=== PATIENT | male | born 1975 | race Caucasian/White ===

== ENCOUNTER 2016-06-17 04:55 | Emergency (ER) | payer MEDICAID ==
[~2016-06-17] VITALS: Ht 175.3 cm; Wt 75.0 kg
[~2016-06-17 04:55] MED LIST: CEPH-443 PO; IBUP-1542 PO
[2016-06-17 04:57] VITALS: Ht 175.3 cm; Wt 75.0 kg
[2016-06-17 05:25] VITALS: BP 137/81; RESP 20; TEMP 98.1
[2016-06-17] MEDS ORDERED: CETI10CA PO (05:30)
[2016-06-17] MEDS ORDERED: POLY10DR19 BOTH EYES (05:30)
[2016-06-17] MEDS ORDERED: IBUP-1542 PO (05:30)
[2016-06-17] MEDS ORDERED: GUAI120S26 PO (05:30)
--- NOTE | 2016-06-17 05:51 | ERD ---
ER Documentation Chief Complaint Date/Time DATE: 06/17/16 TIME: 05:41 Chief Complaint bilateral eye redness with discharge x 1 week HPI 31-year-old male presents to emergency department for complaints of bilateral eye redness and discharge for 1 week. Patient is complaining of itching. Patient denies any eye pain. Patient denies any problems with vision. Patient family members are sick with the same symptoms. Patient has been having dry cough, does not cough up any phlegm or blood. Patient does not have shortness of breath or wheezing. She has been having runny nose and nasal congestion clear nasal discharge. Patient does not complain of ear pain. Patient does not have any ear discharge. Patient did not take any medications help with symptom. ROS All systems reviewed and are negative except as per history of present illness. Medications Home Meds Active Scripts Ibuprofen* (Motrin*) 600 Mg Tab, 600 MG PO Q6H Y for PAIN AND OR ELEVATED TEMP, #30 TAB Prov:WENDY QUILES NP 06/17/16 Cetirizine Hcl* (Zyrtec*) 10 Mg Capsule, 10 MG PO DAILY, #30 TAB.CHEW Prov:WENDY QUILES NP 06/17/16 Fnmygfmchry-O-Bicjmstwph Hb* (Guaifenesin* DM Syrup) 120 Ml Syrup, 10 ML PO Q4H Y for COUGH, #120 ML Prov:WENDY QUILES NP 06/17/16 Polymyxin B Sulfate-TMP* (Polymyxin B-TMP Eye Drops*) 10 Ml Drops, 1 DROP BOTH EYES QID for 7 Days, EA Prov:WENDY QUILES NP 06/17/16 Cephalexin* (Keflex*) 500 Mg Capsule, 500 MG PO QID for 5 Days, CAP Prov:WENDY QUILES NP 02/23/15 Ibuprofen* (Ibuprofen*) 600 Mg Tablet, 600 MG PO Q6H Y for PA, #30 TAB Prov:WENDY QUILES NP 02/23/15 Allergies Allergies: Coded Allergies: No Known Allergy (Unverified , 06/17/16) PMhx/Soc History of Surgery: No Anesthesia Reaction: No Hx Neurological Disorder: No Hx Respiratory Disorders: No Hx Cardiac Disorders: No Hx Psychiatric Problems: No Hx Miscellaneous Medical Probl: Yes (BORDERLINE DIABETES.) Hx Alcohol Use: No Hx Substance Use: No Hx Tobacco Use: No Smoking Status: Never smoker FmHx Family History: No coronary disease, No diabetes, No other Physical Exam Vitals Vital Signs Date Time Temp Pulse Resp B/P Pulse Ox O2 Delivery O2 Flow Rate FiO2 06/17/16 05:25 98.1 20 137/81 98 06/17/16 04:57 98.1 85 20 137/81 98 Physical Exam GENERAL: The patient is well developed and appropriate for usual state of health, in no apparent distress. HEENT: Atraumatic. Bilateral eyes noted to be erythematous with purulent discharge from bilateral eyes. Bilateral eyes are PERRL EOM intact. Ears: Normal tympanic membrane, no erythema or bulging. No ear canal swelling. No ear discharge. Nose: Erythematous nasal turbinates with clear nasal discharge. Throat: oropharynx erythematous with postnasal drip. No tonsillar swelling or tonsillar exudates. No lymphadenopathy. CHEST: Clear to auscultation bilaterally. There are no rales, wheezes or rhonchi. HEART: Regular rate and rhythm. No murmurs, clicks, rubs or gallops. No S3 or S4. ABDOMEN: Soft, nontender and nondistended. Good bowel sounds. No rebound or guarding. No gross peritonitis. No gross organomegaly or masses. No Gunn sign or McBurney point tenderness. BACK: No midline or flank tenderness. EXTREMITIES: Equal pulses bilaterally. There is no peripheral clubbing, cyanosis or edema. No focal swelling or erythema. Full range of motion. Grossly neurovascularly intact. NEURO: Alert and oriented. Cranial nerves 2-12 intact. Motor strength in all 4 extremities with 5/5 strength. Sensation grossly intact. Normal speech and gait. SKIN: There is no apparent rash or petechia. The skin is warm and dry. HEMATOLOGIC AND LYMPHATIC: There is no evidence of excessive bruising or lymphedema. No gross cervical, axillary, or inguinal lymphadenopathy. Procedures/MDM Medical Decision Making: Patient symptoms are most likely consistent with upper respiratory tract infection/ bronchitis, which viral in origin. There is low suspicion for Pneumonia at this time since patients lungs sounds are clear, patient O2 saturation is normal and patient doesnt show any respiratory distress. Radiology exam is not indicated at this time. There is low suspicion for other cardiopulmonary emergencies at this time such as CHF, Pulmonary Embolism, Pneumothorax, or any other cardiopulmonary emergencies at this time. There is low suspicion for sepsis. Patient appears well and is hemodynamically stable. Fever is controlled with medicines. Bilateral eye redness noted most likely consistent with acute bacterial conjunctivitis, no symptoms of other eye emergencies at this time. Disposition: Home. Condition: Stable Prescriptions: Polytrim eyedrops, guaifenesin DM, Zyrtec, ibuprofen Instructions: Patient is advised to take medications as prescribed. Patient is advised to rest. Patient advised to increase fluid intake, do humidifier at home and if possible, do salt water gargles. Patient is advised that if symptoms are worse, shortness of breath, uncontrolled fever, stridor, vomiting, worst signs and symptoms to return to emergency department immediately. Otherwise, patient is advised to follow up with primary doctor in 5-7 days. Departure Diagnosis: Primary Impression: URI (upper respiratory infection) URI type: unspecified viral URI Qualified Code: J06.9 - Viral upper respiratory tract infection Additional Impression: Acute bacterial conjunctivitis of both eyes Condition: Stable Patient Instructions: Conjunctivitis Caused by Infection, Uri, Viral, No Abx ( Adult) WENDY QUILES NP Jun 17, 2016 05:51
== END 2016-06-17 05:49 | disposition home or self-care (01) ==
LOC: FTE 04:55
DX: J06.9 Acute upper respiratory infection, unspecified (principal); H10.023 Other mucopurulent conjunctivitis, bilateral
CPT/HCPCS: 99283